=== PATIENT | female | born 1945 | race Caucasian/White ===

== ENCOUNTER 2019-05-31 19:59 | Inpatient (IN) ==
[2019-05-31] MEDS ORDERED: METOCLOPRAMIDE 10 MG/2 ML VIAL IV STA (20:30)
[2019-05-31] MEDS ORDERED: ONDANSETRON 4 MG/2 ML VIAL IV STA (20:30)
[2019-05-31] MEDS ORDERED: PANTOPRAZOLE 40 MG VIAL IV STA (20:30)
[2019-05-31] MEDS ORDERED: DICYCLOMINE 20 MG/2 ML AMP IM ONE (20:30)
[2019-05-31] MEDS ORDERED: metroNIDAZOLE INJ 500 MG in PREMIX 1 EACH IV STA (20:30)
[2019-05-31] MEDS ORDERED: SODIUM CHLORIDE 0.9% 1,000 ML IV STA (20:30)
[2019-05-31] MEDS ORDERED: methylPREDNISolone SOD SUC 125 MG/2 ML VIAL IV STA (21:46)
[2019-05-31 21:58] LABS: Basophils % 0.5 % (0.0-0.8); Eosinophils % 0.2 % (0.00-10.9); Hematocrit 35.8 VOL% (35.7-47.0); Hemoglobin 11.1 GM/DL (12.0-16.0); Immature Granulocytes % 0.5 %; Immature Granulocytes Absolute 0.03 #; Lymphocytes # 1.1 10*3/uL (1.4-4.0); Lymphocytes % 16.3 % (21.3-54.2); Mean Corpuscular Volume 78.9 FL (87-102); Mean Platelet Volume 9.9 FL (9.6-12.0); Monocytes % 12.7 % (1.7-12.7); Neutrophils % 69.8 % (38.7-73.9); Platelet Count 218 T/CUMM (130-400); Red Blood Count 4.54 MC/CUMM (3.8-5.5); Red Cell Distribution Width 15.3 % (9.3-17.3); White Blood Count 6.5 T/CUMM (4-12)
[2019-05-31 22:23] LABS: Amylase 84 U/L (25-115); Troponin I < 0.015 NG/ML (0.00-0.045)
[2019-05-31 22:28] LABS: Albumin 3.7 G/DL (3.4-5.0); Bilirubin,Total 0.8 MG/DL (0.2-1.0); Calcium 9.2 MG/DL (8.5-10.1); Osmolality,Calculated 279.1 MOS/KG (273-304); Total Protein 7.8 G/DL (6.4-8.3)
[2019-05-31] MEDS ORDERED: POTASSIUM BICARB EFFERVESCENT 25 MEQ TABLET PO ONE (22:42)
[2019-05-31 22:54] LABS: Anisocytosis 1+; Band Neutrophils 9 % (0-10); Lymphocytes 12 % (20-55); Platelet Estimate Adequate; Segmented Neutrophils 74 % (50-85); Total Cells Counted 100
[2019-05-31] MEDS ORDERED: ACETAMINOPHEN 500 MG TABLET PO PRN (23:00)
[2019-05-31] MEDS ORDERED: ONDANSETRON 4 MG/2 ML VIAL IV PRN (23:00)
[2019-05-31] MEDS ORDERED: LOPERAMIDE 2 MG CAPSULE PO PRN (23:00)
[2019-06-01] MEDS: CIPROFLOXACIN INJ 400 MG in PREMIX 1 EACH IV SCH ×4 (00:54→23:12)
[2019-06-01] MEDS: SODIUM CHLORIDE 0.45% 1,000 ML IV SCH ×4 (00:54→21:03)
[2019-06-01 01:20] LABS: Apearance,Urine CLEAR (Clear); Bilirubin,Urine Negative (Negative); Blood, Urine Small mg/dL (Negative); Glucose,Urine (UA) Negative (Negative); Hyaline Casts,Urine 20 /LPF (0-3); Ketones,Urine Negative (Negative); Mucus,Urine Occasional /LPF (Occasional); Nitrite,Urine Negative (Negative); Protein,Urine Negative; RBC,Urine 1 /HPF (0-4); Urine Color Yellow (Yellow); Urine Specific Gravity 1.006 (1.001-1.035); Urine Urobilinogen < 2.0 EU/DL (0.2-1.0); WBC,Urine 1 /HPF (0-6)
[2019-06-01 03:03] LABS: Calcium 8.6 MG/DL (8.5-10.1); Osmolality,Calculated 281.1 MOS/KG (273-304)
[2019-06-01] MEDS: metroNIDAZOLE INJ 500 MG in PREMIX 1 EACH IV SCH ×4 (03:31→20:57)
[2019-06-01] MEDS: methylPREDNISolone SOD SUC 125 MG/2 ML VIAL IV SCH ×2 (09:00→20:57)
[2019-06-01] MEDS: MAGNESIUM CHLORIDE 64 MG TABLET PO SCH (09:31)
[2019-06-01] MEDS: MELOXICAM 7.5 MG TABLET PO SCH (09:32)
[2019-06-01] MEDS: PANTOPRAZOLE 40 MG TABLET PO SCH (09:32)
[2019-06-01] MEDS: DICYCLOMINE 20 MG TABLET PO SCH ×3 (09:32→20:56)
[2019-06-01] MEDS: POTASSIUM CHLORIDE 20 MEQ TABLET PO SCH ×2 (09:32→20:56)
[2019-06-01] MEDS: ASPIRIN 325 MG TABLET PO SCH (09:32)
[2019-06-01] MEDS: amLODIPine 10 MG TABLET PO SCH ×2 (09:32→09:43)
[2019-06-01] MEDS: GABAPENTIN 100 MG CAPSULE PO SCH (09:32)
[2019-06-01] MEDS: FUROSEMIDE 40 MG TABLET PO SCH (09:32)
[2019-06-01] MEDS: POTASSIUM GLUCONATE 500 MG TABLET PO SCH (09:37)
[2019-06-01] MEDS ORDERED: ATORVASTATIN 20 MG TABLET PO SCH (21:00)
[2019-06-02] MEDS: metroNIDAZOLE INJ 500 MG in PREMIX 1 EACH IV SCH ×3 (03:28→14:49)
[2019-06-02] MEDS ORDERED: LORazepam 1 MG TABLET PO ONE (04:03)
[2019-06-02] MEDS ORDERED: LORazepam 2 MG/1 ML VIAL IM ONE (04:24)
[2019-06-02 08:44] LABS: Calcium 8.9 MG/DL (8.5-10.1); Osmolality,Calculated 289.5 MOS/KG (273-304)
[2019-06-02] MEDS: PANTOPRAZOLE 40 MG TABLET PO SCH (09:03)
[2019-06-02] MEDS: POTASSIUM GLUCONATE 500 MG TABLET PO SCH (09:03)
[2019-06-02] MEDS: amLODIPine 10 MG TABLET PO SCH (09:03)
[2019-06-02] MEDS: ASPIRIN 325 MG TABLET PO SCH (09:04)
[2019-06-02] MEDS: FUROSEMIDE 40 MG TABLET PO SCH (09:04)
[2019-06-02] MEDS: DICYCLOMINE 20 MG TABLET PO SCH ×2 (09:04→14:00)
[2019-06-02] MEDS: MELOXICAM 7.5 MG TABLET PO SCH (09:04)
[2019-06-02] MEDS: POTASSIUM CHLORIDE 20 MEQ TABLET PO SCH (09:04)
[2019-06-02] MEDS: GABAPENTIN 100 MG CAPSULE PO SCH (09:04)
[2019-06-02] MEDS: MAGNESIUM CHLORIDE 64 MG TABLET PO SCH (09:05)
[2019-06-02 09:15] LABS: Basophils % 0.1 % (0.0-0.8); Hematocrit 33.1 VOL% (35.7-47.0); Hemoglobin 10.1 GM/DL (12.0-16.0); Immature Granulocytes % 0.8 %; Immature Granulocytes Absolute 0.11 #; Lymphocytes # 1.5 10*3/uL (1.4-4.0); Lymphocytes % 10.3 % (21.3-54.2); Mean Corpuscular HGB Conc 30.5 GM/DL (32-36); Mean Corpuscular Volume 79.8 FL (87-102); Mean Platelet Volume 10.8 FL (9.6-12.0); Neutrophils % 84.8 % (38.7-73.9); Platelet Count 241 T/CUMM (130-400); Red Blood Count 4.15 MC/CUMM (3.8-5.5); Red Cell Distribution Width 15.7 % (9.3-17.3); White Blood Count 14.4 T/CUMM (4-12)
[2019-06-02] MEDS ORDERED: POTASSIUM CHLORIDE 20 MEQ TABLET PO ONE ×2 (10:20→17:02)
[2019-06-02] MEDS: CIPROFLOXACIN INJ 400 MG in PREMIX 1 EACH IV SCH (11:02)
[2019-06-02] MEDS: SODIUM CHLORIDE 0.45% 1,000 ML IV SCH ×2 (11:02→14:10)
[2019-06-02] MEDS: methylPREDNISolone SOD SUC 125 MG/2 ML VIAL IV SCH (11:02)
[2019-06-02] MEDS ORDERED: POTASSIUM CHLORIDE 20 MEQ TABLET PO SCH (14:00)
[2019-06-02 16:17] VITALS: BP 104/58
[2019-06-02] MEDS ORDERED: CIPROFLOXACIN INJ 400 MG in PREMIX 1 EACH IV SCH (23:00)
== END 2019-06-02 19:16 | disposition home or self-care (01) | DRG 392 ==
LOC: N.ED 19:59 → N.EDINP 22:58 → N.2E 23:23
PROVIDERS: ADMIT Family Medicine; ATTEND Family Medicine